=== PATIENT | male | born 1955 | race Caucasian/White ===

== ENCOUNTER → 2024-04-28 08:03 | Outpatient (REF) | payer MEDICARE, SELFPAY | LOC: DHVS 08:03 | PROVIDERS: ATTENDING PHYSICIAN Surgery Vascular Surgery; FAMILY PHYSICIAN Family Medicine | DX: I72.3 Aneurysm of iliac artery (principal) | CPT/HCPCS: 76770 ==

== ENCOUNTER 2024-06-26 05:09 | Emergency (ER) | payer MEDICARE, SELFPAY ==
[2024-06-26 05:16] VITALS: BP 119/81
[2024-06-26 05:18] VITALS: BMI 23.3
[2024-06-26 05:19] VITALS: BP 119/81
[2024-06-26] MEDS: BENADRYL 50 MG IV (05:25)
--- NOTE | 2024-06-26 05:52 | ED.GENMED ---
History of Present Illness
General
Chief Complaint: Allergic Reaction
Source: patient
Time Seen by Provider: 06/26/24 05:44
History of Present Illness
History of Present Illness:
68-year-old male presents to the emergency room complaining of redness and swelling of his face. He denies any sensation of pharyngeal swelling or throat swelling. Patient took a Bactrim last evening which was prescribed for a potential urinary
tract infection. He believes he is taken Bactrim before without a problem. The rash has not progressed throughout his body but has been limited to the face and neck.
Past History
Past History
ED Past Medical History: Other (Hernia. Chronic low back pain)
ED Past Surgical History: Other (Hemorrhoid surgery, retinal surgery, cataract surgery)
Social History
Tobacco: Non-smoker
Drug: None
Employment: Employed ([employer])
Phy Exam
Physical Exam
Physical Exam:
General: Awake, Alert, Oriented X3. No acute distress.
Vitals: unremarkable
Head: Atraumatic
Eyes: Pupils equal, EOMI
Throat: Airway intact, no exudates, no angioedema of the tongue or palate
Neck: Trachea midline
Lungs: Clear and equal b/l
Heart: Regular rate, no murmurs
Abd: Soft, Nontender, No pulsatile mass
Neuro: Nonfocal
Skin: Facial erythema and swelling. No true angioedema noted of the lips.
Extremities: pulses equal b/l, no edema
Course
Orders/Labs/Results
Orders:
Orders
06/26/24 05:20
Diphenhydramine [Benadryl] 50 mg .ROUTE .STK-MED ONE
06/26/24 05:25
Diphenhydramine [Benadryl] 50 mg IV NOW STA
06/26/24 05:52
Prednisone [Deltasone] 50 mg PO NOW STA
Vital Signs
Initial and Last Documented VS:
Initial Vital Signs
BP
119/81
06/26/24 05:16
Last Documented Vital Signs
Temp Pulse Resp BP Pulse Ox
98.1 F 53 12 117/81 97
06/26/24 05:19 06/26/24 07:00 06/26/24 07:00 06/26/24 07:00 06/26/24 07:00
MDM/Problems Addressed
Differential Diagnosis Includes:
allergic reaction, adverse medication effect
MDM/Problems Addressed:
Patient presents with facial redness and swelling. No intraoral angioedema. Patient monitored for period of time without any worsening. He does seem somewhat better with Benadryl. Patient stable for discharge home
*Pulse Oximetry
Patient hypoxic: no
*Critical Care Note
Total Time (30-74mins, 75-104mins- exclusive of procedures): Not Applicable
ED Attending Note
-
Portions of this chart may have been created with voice recognition software.� Occasional wrong word or��sound alike� substitutions may have occurred due to the inherent limitations of voice recognition software.
Discharge Plan
Departure
Patient Disposition: Home (Routine Discharge)
Date of Disposition: 06/26/24
Time of Disposition: 07:02
Patient with high blood pressure during this ER visit?: No
Condition: Good
Discharge Problem:
Allergic reaction caused by a drug
Instructions: Allergic reaction - ED discharge instructions
Prescriptions:
New
prednisone 20 mg tablet
40 mg PO DAILY Qty: 8 0RF
No Action
cetirizine 10 MG tablet
10 mg PO DAILY
escitalopram oxalate 10 MG tablet
10 mg PO HS
levofloxacin 500 MG tablet
500 mg PO DAILY
Patient Comments:
X 10 days 01/31/13-02/10/13
cyclobenzaprine 10 MG tablet
10 mg PO TIDPRN PRN (Reason: pain, muscle spasms) Qty: 30 0RF
hydrocodone-acetaminophen 1 TABLET tablet
1 tab PO Q4HPRN PRN (Reason: pain) Qty: 12 0RF
prednisone 20 MG tablet
40 mg PO DAILY Qty: 10 0RF
sulfamethoxazole-trimethoprim 1 TABLET tablet
1 tab PO BID Qty: 14 0RF
cephalexin 500 MG capsule
500 mg PO QID Qty: 28 0RF
Activity Restrictions/Additional Instructions:
You can take Benadryl 25 mg every 6 hours. I prescribed a short course of prednisone also help with her allergic reaction
Interventions
Interventions:
*Risk Screen - Suicide Last Done: 06/26/24 05:19
*General Assessment Last Done: 06/26/24 05:19
*Neglect/Abuse Screening Last Done: 06/26/24 05:19
ED- Fall Risk Assessment Last Done: 06/26/24 05:19
*ED COVID-19 Vaccine History Last Done: 06/26/24 05:19
ED- Cardiac Assessment Last Done: 06/26/24 06:16
ED- Pulmonary Assessment Last Done: 06/26/24 06:16
ED-Skin Assessment Last Done: 06/26/24 06:16
Discharge Date and Time
Print Language: [place]
[2024-06-26] MEDS: DELTASONE 50 MG PO (05:58)
[2024-06-26 06:00] VITALS: BP 111/77
[2024-06-26 07:00] VITALS: BP 117/81
--- NOTE | 2024-06-26 07:48 | ED.GENMED ---
History of Present Illness
General
Chief Complaint: Allergic Reaction
Time Seen by Provider: 06/26/24 05:44
Past History
Past History
ED Past Medical History: Other (Hernia. Chronic low back pain)
ED Past Surgical History: Other (Hemorrhoid surgery, retinal surgery, cataract surgery)
Social History
Tobacco: Non-smoker
Drug: None
Employment: Employed ([employer])
Course
Orders/Labs/Results
Orders:
Orders
06/26/24 05:20
Diphenhydramine [Benadryl] 50 mg .ROUTE .STK-MED ONE
06/26/24 05:25
Diphenhydramine [Benadryl] 50 mg IV NOW STA
06/26/24 05:52
Prednisone [Deltasone] 50 mg PO NOW STA
Vital Signs
Initial and Last Documented VS:
Initial Vital Signs
BP
119/81
06/26/24 05:16
Last Documented Vital Signs
Temp Pulse Resp BP Pulse Ox
98.1 F 53 12 96/68 94
06/26/24 05:19 06/26/24 07:00 06/26/24 07:00 06/26/24 07:47 06/26/24 07:47
ED Attending Note
-
Portions of this chart may have been created with voice recognition software.� Occasional wrong word or��sound alike� substitutions may have occurred due to the inherent limitations of voice recognition software.
Discharge Plan
Departure
Patient Disposition: Home (Routine Discharge)
Date of Disposition: 06/26/24
Time of Disposition: 07:02
Patient with high blood pressure during this ER visit?: No
Condition: Good
Discharge Problem:
Allergic reaction caused by a drug
Instructions: Allergic reaction - ED discharge instructions
Prescriptions:
New
prednisone 20 mg tablet
40 mg PO DAILY Qty: 8 0RF
cephalexin 500 mg capsule
500 mg PO BID 7 Days Qty: 14 0RF
No Action
cetirizine 10 MG tablet
10 mg PO DAILY
escitalopram oxalate 10 MG tablet
10 mg PO HS
levofloxacin 500 MG tablet
500 mg PO DAILY
Patient Comments:
X 10 days 01/31/13-02/10/13
cyclobenzaprine 10 MG tablet
10 mg PO TIDPRN PRN (Reason: pain, muscle spasms) Qty: 30 0RF
hydrocodone-acetaminophen 1 TABLET tablet
1 tab PO Q4HPRN PRN (Reason: pain) Qty: 12 0RF
prednisone 20 MG tablet
40 mg PO DAILY Qty: 10 0RF
sulfamethoxazole-trimethoprim 1 TABLET tablet
1 tab PO BID Qty: 14 0RF
cephalexin 500 MG capsule
500 mg PO QID Qty: 28 0RF
Activity Restrictions/Additional Instructions:
You can take Benadryl 25 mg every 6 hours. I prescribed a short course of prednisone also help with her allergic reaction
Interventions
Interventions:
*Risk Screen - Suicide Last Done: 06/26/24 05:19
*General Assessment Last Done: 06/26/24 05:19
*Neglect/Abuse Screening Last Done: 06/26/24 05:19
ED- Fall Risk Assessment Last Done: 06/26/24 05:19
*ED COVID-19 Vaccine History Last Done: 06/26/24 05:19
ED- Cardiac Assessment Last Done: 06/26/24 06:16
ED- Pulmonary Assessment Last Done: 06/26/24 06:16
ED-Skin Assessment Last Done: 06/26/24 06:16
Discharge Date and Time
Print Language: [place]IZ[place]
== END 2024-06-26 07:51 | disposition home or self-care (01) ==
LOC: EMR 05:09
PROVIDERS: EMERGENCY PHYSICIAN Emergency Medicine; FAMILY PHYSICIAN Family Medicine
DX: T50.905A Adverse effect of unspecified drugs, medicaments and biological substances, initial encounter (principal); R22.0 Localized swelling, mass and lump, head; L53.8 Other specified erythematous conditions; G89.29 Other chronic pain; M54.50 Low back pain, unspecified; Z88.6 Allergy status to analgesic agent; Z88.1 Allergy status to other antibiotic agents; Z88.2 Allergy status to sulfonamides
CPT/HCPCS: 99284; 96374

== ENCOUNTER → 2024-12-10 07:36 | Outpatient (REF) | payer MEDICARE, SELFPAY | LOC: MRI 07:36 | PROVIDERS: ATTENDING PHYSICIAN Psychiatry & Neurology Neurology; FAMILY PHYSICIAN Family Medicine | DX: M54.12 Radiculopathy, cervical region (principal) | CPT/HCPCS: 72141 ==

== ENCOUNTER → 2025-04-27 08:29 | Outpatient (REF) | payer MEDICARE, SELFPAY | LOC: DHVS 08:29 | PROVIDERS: ATTENDING PHYSICIAN Surgery Vascular Surgery; FAMILY PHYSICIAN Family Medicine | DX: I72.3 Aneurysm of iliac artery (principal) | CPT/HCPCS: 76770 ==